=== PATIENT | female | born 1965 | race Caucasian/White ===

== ENCOUNTER 2021-04-17 07:00 | Inpatient (IN) | payer MEDICAID ==
[~2021-04-17] VITALS: Ht 175.2 cm; Wt 130.2 kg
[2021-04-17] MEDS ORDERED: REMERON15 M2 PO (09:51)
[2021-04-17] MEDS ORDERED: MINIPRESS2 M1 PO (09:52)
[2021-04-17] MEDS ORDERED: GABAPENTIN600 MG PO (09:53)
[2021-04-17] MEDS ORDERED: GABAPENTIN800 MG PO (10:00)
[2021-04-17 11:05] VITALS: BP 141/79
[2021-04-17] MEDS ORDERED: CYMBALTA60 MG PO (11:24)
[2021-04-17] MEDS ORDERED: LIPITOR20 MG PO (11:34)
[2021-04-17] MEDS ORDERED: Clopidogrel75 MG PO (11:35)
[2021-04-17] MEDS ORDERED: BENTYL10 MG/1 ML IM (11:37)
[2021-04-17] MEDS ORDERED: HEARTBURN RELIE20 MG PO (11:38)
[2021-04-17] MEDS ORDERED: LOSARTAN POTASS50 M1 PO (11:39)
[2021-04-17] MEDS ORDERED: Meclizine25 MG PO (11:42)
[2021-04-17] MEDS ORDERED: METOPROLOL SUCC50 M1 PO (11:43)
[2021-04-17] MEDS ORDERED: OMEPRAZOLE40 MG PO (11:44)
[2021-04-17 20:00] VITALS: BP 118/51
[2021-04-18 07:15] LABS: BASO # 0.1 10*3/uL (0.0-0.1); BASO % 0.4 % (0.0-1.0); EOS # 0.4 10*3/uL (0.0-0.4); EOS % 3.1 % (1.0-4.0); HEMATOCRIT 39.8 % (37.0-47.0); LYMPH # 2.9 10*3/uL (1.3-4.4); MEAN CELL VOLUME 93.6 fl (81.0-99.0); MEAN CORPUSCULAR HGB 30.8 pg (27.0-31.0); MEAN CORPUSCULAR HGB CONC 32.9 g/dl (33.0-37.0); MEAN PLATELET VOLUME 12.8 fl (9.6-12.3); MONO # 0.7 10*3/uL (0.1-1.0); MONO % 6.3 % (3.0-9.0); NEUT # 7.4 10*3/uL (2.3-7.9); NEUT % 64.7 % (47.0-73.0); PLATELET COUNT AUTOMATED 161 10*3/uL (130-400); RED BLOOD COUNT 4.25 10*6/uL (4.10-5.10); RED CELL DISTRI WIDTH 12.3 % (0-14.5); WHITE BLOOD COUNT 11.4 10*3/uL (4.8-10.8)
[2021-04-18 07:30] LABS: ALBUMIN 3.1 gm/dl (3.1-4.5); ALKALINE PHOSPHATASE 112 U/L (45-117); BUN 16 mg/dl (7-24); CHLORIDE 104 mmol/L (98-107); CHOLESTEROL 138 mg/dL (<200); CREATININE 0.99 mg/dL (0.55-1.02); LDL CHOLESTEROL 65 mg/dL (9-159); POTASSIUM 3.9 mmol/L (3.5-5.1); SGOT/AST 21 IU/L (3-35); SGPT/ALT 33 U/L (12-78); SODIUM 137 mmol/L (136-145); TOTAL PROTEIN 7.1 gm/dL (6.4-8.2); TRIGLYCERIDES 188 mg/dl (<150)
[2021-04-18 07:37] LABS: THYROID STIM HORMONE (HS) 0.634 uIU/ml (0.358-4.75)
[2021-04-18 08:00] VITALS: BP 143/86
[2021-04-18 08:46] LABS: VITAMIN D, 25-HYDROXY 22.5 ng/mL (30-100)
[2021-04-18 20:00] VITALS: BP 139/76
[2021-04-19 07:58] VITALS: BP 140/86
[2021-04-19 20:49] VITALS: BP 138/63
[2021-04-20 08:00] VITALS: BP 149/69
[2021-04-20] MEDS ORDERED: VITAMIN D350 MC2 PO (14:33)
[2021-04-20 20:00] VITALS: BP 144/76
[2021-04-20] MEDS ORDERED: CYMBALTA60 MG PO (20:04)
[2021-04-20] MEDS ORDERED: TRAZODONE100 MG PO (20:05)
[2021-04-20] MEDS ORDERED: FANAPT1 MG PO (20:05)
[2021-04-21 07:59] VITALS: BP 133/76
== END 2021-04-21 08:20 | disposition home or self-care (01) | DRG 751 ==
LOC: 3N 07:00
PROVIDERS: ADMIT Psychiatry & Neurology Psychiatry; ATTEND Psychiatry & Neurology Psychiatry
DX: F33.2 Major depressive disorder, recurrent severe without psychotic features (principal); I71.9 Aortic aneurysm of unspecified site, without rupture; F43.10 Post-traumatic stress disorder, unspecified; M79.7 Fibromyalgia; K21.9 Gastro-esophageal reflux disease without esophagitis; L60.0 Ingrowing nail; M86.8X8 Other osteomyelitis, other site; M19.90 Unspecified osteoarthritis, unspecified site; Z20.822 Contact with and (suspected) exposure to COVID-19; E11.51 Type 2 diabetes mellitus with diabetic peripheral angiopathy without gangrene; E11.69 Type 2 diabetes mellitus with other specified complication; E78.5 Hyperlipidemia, unspecified; I25.10 Atherosclerotic heart disease of native coronary artery without angina pectoris; K58.9 Irritable bowel syndrome, unspecified; Z79.899 Other long term (current) drug therapy; Z88.0 Allergy status to penicillin; Z90.49 Acquired absence of other specified parts of digestive tract